=== PATIENT | female | born 1975 | race Caucasian/White ===

== ENCOUNTER → 2019-12-26 15:23 | Outpatient (REF) | payer SELFPAY | LOC: ANHLAB 15:23 | PROVIDERS: Visit Provider Nurse Practitioner | DX: D49.2 Neoplasm of unspecified behavior of bone, soft tissue, and skin (principal); L70.0 Acne vulgaris | CPT/HCPCS: 88305 ==

== ENCOUNTER → 2020-08-29 10:01 | Outpatient (CLI) | payer OTHER, SELFPAY ==
--- NOTE | ~2020-08-29 | MM_ITS ---
EXAMINATION: MM screening shayna BI w rosibel HISTORY: Screening mammogram TECHNIQUE: Craniocaudal and mediolateral oblique 3-D tomosynthesis images were obtained and synthetic 2-D images were generated. CAD analysis was submitted and interpreted. COMPARISON: 07/14/2019, 06/22/2018, 06/07/2017 bilateral digital screening mammogram examinations BREAST PARENCHYMAL COMPOSITION: The breasts are extremely dense, which lowers the sensitivity of mamm ography. FINDINGS: There is no evidence of suspicious mass, calcification, or architectural distortion to sugg est malignancy in either breast. There has been no suspicious interval change. IMPRESSION: 1. No mammographic evidence of malignancy. 2. Recommend routine screening mammography in one year. BI-RADS Category 1: Negative Reviewed, dictated and finalized at location A. [facility]
== END ==
PROVIDERS: Visit Provider Nurse Practitioner
DX: Z12.31 Encounter for screening mammogram for malignant neoplasm of breast (principal)
CPT/HCPCS: 77063; 77067